=== PATIENT | female | born 1965 | race African-American/Black ===

== ENCOUNTER 2016-11-16 11:05 | Emergency (ER) | payer MEDICAID ==
[~2016-11-16] VITALS: Ht 160 cm; Wt 83.0 kg
[2016-11-16] MEDS ORDERED: IBUPROFEN 600MG TABLET PO ONE (13:30)
[2016-11-16] MEDS ORDERED: HYDROCODONE/ACETAMINOPHEN 5/325MG TABLET PO ONE (16:00)
[2016-11-16 17:28] VITALS: BP 122/80
== END 2016-11-16 17:50 | disposition home or self-care (01) ==
LOC: ER 14:30
DX: S92.355A Nondisplaced fracture of fifth metatarsal bone, left foot, initial encounter for closed fracture (principal); I10 Essential (primary) hypertension; W10.8XXA Fall (on) (from) other stairs and steps, initial encounter; Y93.89 Activity, other specified; Y92.018 Other place in single-family (private) house as the place of occurrence of the external cause
CPT/HCPCS: 29515; 73610; 73630; 99284